=== PATIENT | female | born 1950 | race Caucasian/White ===

== ENCOUNTER 2018-05-30 09:13 | Inpatient (IN) | payer MEDICAID, MEDICARE ==
[2018-05-30] MEDS ORDERED: KETOROLAC TROMETHAMINE 30 MG/ML VIAL ONE (09:23)
[2018-05-30] MEDS ORDERED: KETOROLAC TROMETHAMINE 30 MG/ML VIAL IM ONE (09:24)
[2018-05-30] MEDS ORDERED: KETOROLAC TROMETHAMINE 30 MG/ML VIAL IV ONE (09:27)
--- NOTE | 2018-05-30 09:28 | ERNOTE ---
Lower Extremity HPI - Narrative Date of Service: 05/30/18 - General Lower Extremities Pain: hip: right Time Seen by Provider: 05/30/18 09:24 Source: patient - Immun/Allergies/Home Medications Immunizations: IMMUNIZATION HX Immunizations Up to Date Yes History of Influenza Vaccine Yes Hx Pneumococcal Vaccination Yes Allergies/Adverse Reactions: Allergies Allergy/AdvReac Type Severity Reaction Status Date / Time No Known Allergies Allergy Unverified 05/30/18 09:17 Home Medications: HOME MEDICATIONS Aspirin 81 mg PO DAILY 05/30/18 [Last Taken Unknown] - History of Present Illness Narrative: Patient is 67-year-old female who presents to the emergency room complaining of right hip pain noted this morning. Apparently patient slipped and fell landing on the right side of his hip area. She was unable to bear weight. Prior history of falls. Denies any leg swelling, paresthesia, numbness of the extremity. Occurred: this morning Location of Incident: home Method of Injury: Reports: fell Reason for Fall: Reports: slipped, tripped Associated Symptoms: Reports: unable to bear weight. Denies: snapping, popping sensation, dizzy/light headedness, headache, weakness, sensory loss, chest pain , vomiting/diarrhea, bowel/bladder problems Other Injuries: Reports: none Subsequent Symptoms: Denies: sensory loss, numbness, motor loss, bowel/bladder problem Review of Systems - Review of Systems Constitutional: Present: no symptoms reported EYE: Present: no symptoms reported ENT: Present: no symptoms reported Respiratory: Present: no symptoms reported Cardiology: Present: no symptoms reported Gastrointestinal/Abdominal: Present: no symptoms reported Genitourinary: Present: no symptoms reported Skin: Present: no symptoms reported Neurological: Present: no symptoms reported Endocrine: Present: no symptoms reported Hematologic/Lymphatic: Present: no symptoms reported Psych: Present: no symptoms reported Medical History (Last Updated 05/30/18 @ 09:17 by Martha Yun RN) No pertinent past medical history Surgical History: Surgical History (Last Updated 05/30/18 @ 09:16 by Martha Yun RN) H/O section History of appendectomy Family History: Family History (Last Updated 05/30/18 @ 09:17 by Martha Yun RN) Mother Diabetes Social History: Preferred Language Malawian Smoking Status Current every day smoker Alcohol Use none Drug Use none Physical Exam - Physical Exam General Appearance: Present: wd/wn, alert, no apparent distress Head Exam: Present: normal inspection, no evidence of injury Eye Exam: Normal inspection: bilateral, PERRL: bilateral, EOMI: bilateral Neck: Present: normal inspection, nontender, supple, full range of motion Respiratory: Present: no respiratory distress, normal breath sounds, no accessory muscle use Cardiovascular/Chest: Present: regular rate, rhythm, no murmur, normal peripheral pulses Extremity Exam: Present: normal inspection, decreased range of motion - she appears to have a decreased right hip range of motion on flexion and extension. Both maneuvers are pain producing for her. Rotational movements of the right hip at endrange is pain provoking as well. Logrolling of the right hip is significant for pain. 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 Vital Signs: Vital Signs 05/30/18 09:14 Temperature 36.8 C Pulse Rate 77 Respiratory Rate 15 Blood Pressure 166/127 H O2 Sat by Pulse Oximetry 95 - X-Ray X-Ray #2 X-Ray: hip Interpretation: Interp. by me X-ray Comments: X-ray of the pelvis and right hip repeat view consistent with right femoral neck fracture. Discussed this patient with Dr. Pierce who recommended having the patient admitted by medicine with possible surgery to be done tomorrow morning - Progress/Reassessment Chief Complaint: Hip Pain/Injury Progress Note-Subjective: 05/30/18 10:08 Patient presents to the emergency room with right hip pain after slipping and falling. Upon arrival she reports right hip pain. Examination consistent with pain at the anterior right hip region. The rest of the exam of the body of the H&P X-ray of the pelvis and hip consistent with right femoral neck fracture. Discussed this patient with Dr. Sanchez Patient will be admitted to the medicine service - Transfer of Care Expected Disposition: Admit Departure Clinical Impression: Femoral neck fracture Hip pain, acute Qualifiers: Laterality: right Qualified Code(s): M25.551 - Pain in right hip - Departure Disposition: Short Term Hospital Inpatient Condition: Stable
[2018-05-30] MEDS ORDERED: RINGER'S SOLUTION,LACTATED 1,000 ML IV ONE (12:40)
[2018-05-30] MEDS ORDERED: MORPHINE SULFATE 8 MG/ML VIAL IV PRN (12:40)
[2018-05-30] MEDS ORDERED: ONDANSETRON HCL/PF 2 MG/ML VIAL IV PRN (13:11)
[2018-05-30] MEDS ORDERED: MORPHINE SULFATE 4 MG/ML SYRG IV PRN (13:12)
--- NOTE | 2018-05-30 16:12 | CONS ---
- Reason for consultation (1) Femoral neck fracture Date of Service: 05/30/18 HPI - General Narrative: Mrs. Kong is a 67-year-old female who fell at home onto her right hip resulting in significant right hip pain and an inability to weight-bear. She was brought to the emergency department and found to have a right midcervical nondisplaced femoral neck fracture. She was admitted to the floor for preoperative optimization under the care of the family medicine practice. She denies any other areas of pain. She denies any prior hip pain or injury. She is a community ambulator and runs her own errands and lives independently. She walks without an assistive device. Source: patient Exam Limitations: no limitations - History of Present Illness Timing/Duration: 4-6 hours Severity: moderate Modifying Factors - (Worsens): Reports: movement Modifying Factors - (Improves): Reports: immobilization Associated Symptoms: denies symptoms Allergies/Adverse Reactions: Allergies No Known Allergies Allergy (Unverified 05/30/18 09:17) Home Medications: Home Medications Medication Instructions Recorded Last Taken Aspirin 81 mg PO DAILY 05/30/18 Unknown Medications - Medications Current Medications: Current Medications Morphine Sulfate (Morphine Sulfate) 4 mg IV Q6H PRN PRN Reason: Pain Stop: 06/29/18 12:41 Last Admin: 05/30/18 14:51 Dose: 2 mg Review of Systems - Review of Systems Generalized/Overall Review: Present: No Symptoms Reported Physical Examination - Exam Narrative: Right lower extremity: No lacerations, ecchymosis or abrasions over the hip. Palpable dorsalis pedis pulse. No significant limb length discrepancies. Pain with any hip range of motion. Sensation is intact light touch. She didn't flex and extend her toes and ankle. Vital Signs: Vital Signs - Last Taken Temp 36.7 C 05/30/18 14:11 Pulse 86 05/30/18 14:11 Resp 20 05/30/18 14:11 BP 162/66 H 05/30/18 14:11 Pulse Ox 98 05/30/18 14:11 O2 Oxygen Delivery Method Room Air Constitutional: Present: Alert, Oriented x3 - Results and Findings: Narrative: AP pelvis 2 views of right hip: Minimally valgus impacted essentially nondisplaced right femoral neck fracture without any signs of other pelvic fracture or advanced arthrosis. - Assessments/Findings (1) Femoral neck fracture Diagnosis(s): As his fracture is essentially nondisplaced a plan will be for closed reduction percutaneous fixation tomorrow. She'll need 6 weeks of DVT prophylaxis postoperatively. She'll be nothing by mouth after midnight. Consent will be obtained for the procedure. She will receive IV Ancef perioperatively. Problem: Acute Qualifiers: Encounter type: initial encounter Fracture type: closed Laterality: right Qualified Code(s): S72.001A - Fracture of unspecified part of neck of right femur, initial encounter for closed fracture
--- NOTE | 2018-05-30 19:06 | HP ---
Chief Complaint - Chief Complaint Date of Service: 05/30/18 Time of Service: 18:51 Chief Complaint: R hip pain History of Present Illness: 67 yo F presented to the ER after falling at her place of residence. She was unable to bear weight on her R side. In the ER, xr showed nondisplaced R femoral neck fracture. Ortho consulted and plan to repair percutaneously in the AM. Her pain is minimal now. She has no real pertinent PMH. She takes a baby asa daily but otherwise if off of all meds. She has no other concerns or complaints at this time and appears comfortable in bed. Medical History (Last Reviewed 05/30/18 @ 10:59 by Cony Gaviria RN) No pertinent past medical history Surgical History: Surgical History (Last Reviewed 05/30/18 @ 10:59 by Cony Gaviria RN) H/O section History of appendectomy Family History: Family History (Last Updated 05/30/18 @ 10:59 by Cony Gaviria RN) Mother Diabetes Hypertension Sister Hypertension Anxiety Social History: Patient Lives/Resources Home Utilized Occupation retired Preferred Language Panamanian Do you have any caodaism or Yes cultural preference? Smoking Status Current some day smoker Have you smoked in the past 12 Yes months Do you dip or chew tobacco Yes Alcohol Use none Drug Use none Review Of Systems (GEN) - Review of Systems Generalized/Overall Review: Present: No Symptoms Reported EENTM: Present: No Symptoms Reported Respiratory: Present: No Symptoms Reported Cardiac: Present: No Symptoms Reported Abdominal: Present: No Symptoms Reported Genitourinary: Present: No Symptoms Reported Musculoskeletal: Present: Joint Pain Neurological: Absent: Numbness, Parasthesia, Tingling Skin: Present: No Symptoms Reported Immunizations: IMMUNIZATION HX Immunizations Up to Date Yes History of Influenza Vaccine Yes Hx Pneumococcal Vaccination Yes Allergies/Adverse Reactions: Allergies Allergy/AdvReac Type Severity Reaction Status Date / Time No Known Allergies Allergy Unverified 05/30/18 09:17 Home Medications: HOME MEDICATIONS Aspirin 81 mg PO DAILY 05/30/18 [Last Taken Unknown] Exam - Exam Vital Signs: Vital Signs - Last Taken Temp 37.8 C 05/30/18 18:00 Pulse 84 05/30/18 18:00 Resp 20 05/30/18 18:00 BP 142/66 05/30/18 18:00 Pulse Ox 93 09/20/18 18:00 Constitutional: Present: Alert, Oriented x3, Cooperative Neck: Present: non-tender, supple Back Exam: Present: normal inspection Breasts: Present: Exam deferred Respiratory: Present: chest non-tender, lungs clear, normal breath sounds Cardiovascular/Chest: Present: normal peripheral pulses, regular rate, rhythm, no edema Abdomen: Present: Normal bowel sounds, soft /Rectal: Present: Exam deferred Extremity: Present: normal capillary refill, leg pain - pain with all ROM of R hip. Absent: pedal edema Appearance: Present: appropriate appearance Eye contact: Present: cooperative Thoughts: Present: normal thought pattern, normal mood /affect Assessment/Plan - Assessment/Plan (1) Femoral neck fracture Assessment: Ortho to repair tomorrow. Will check a hemoglobin tonight to make sure patient is hemo-dynamically stable prior to surgery. Will make patient NPO at Midnight, start IV fluids following. No DVT prophylaxis until after surgery. Problem: Acute Qualifiers: Encounter type: initial encounter Fracture type: closed Laterality: right Qualified Code(s): S72.001A - Fracture of unspecified part of neck of right femur, initial encounter for closed fracture (2) Hip pain, acute Assessment: See above. Morphine ordered PRN. Problem: Acute Qualifiers: Laterality: right Qualified Code(s): M25.551 - Pain in right hip
[2018-05-31] MEDS ORDERED: RINGER'S SOLUTION,LACTATED 1,000 ML IV ONE (00:01)
[2018-05-31] MEDS: MORPHINE SULFATE 2 MG/ML DISP.SYRIN IV PRN ×2 (00:35→06:45)
[2018-05-31] MEDS ORDERED: ceFAZolin SODIUM 1 GM VIAL IV PRN (06:00)
--- NOTE | 2018-05-31 08:51 | ANES ---
Anesthesia Pre Procedure Eval Vitals/Labs: Last Vital Signs Temp 37 C 05/31/18 07:06 Pulse 82 05/31/18 07:06 Resp 18 05/31/18 07:06 BP 149/63 05/31/18 07:06 Pulse Ox 98 05/31/18 07:06 HOME MEDICATIONS Aspirin 81 mg PO DAILY 05/30/18 [Last Taken Unknown] Allergies/Adverse Reactions: Allergies Allergy/AdvReac Type Severity Reaction Status Date / Time No Known Allergies Allergy Unverified 05/30/18 09:17 - Planned Procedure Planned Procedure: ORIF hip Medication List Reviewed:: Yes Allergies Verified: Yes Medical History (Last Reviewed 05/30/18 @ 10:59 by Cony Gaviria RN) No pertinent past medical history Surgical History (Last Reviewed 05/30/18 @ 10:59 by Cony Gaviria RN) H/O section History of appendectomy Family History (Last Updated 05/30/18 @ 10:59 by Cony Gaviria RN) Mother Diabetes Hypertension Sister Hypertension Anxiety - Family Anesthesia History Family History:: no untoward family reactions to anesthesia, no familial bleeding tendencies, no family history of clotting disorders, no family history of premature - Airway/Neck/Teeth Within Normal Limits:: Yes Teeth Condition: Missing Teeth Neck Exam: limited range of motion Mallampatti Score: 2 Thyromental (T-M) distance: > 6 cm Mandibulo Hyoid distance: > 3 cm - Respiratory Respiratory: lungs clear Smoking Status: Current every day smoker Discussed smoking cessation including day of surgery: Yes Sleep Apnea currently treated: No Sleep Apnea by current assessment: No Discussed Risks/Treatment of GERBER: No - Cardiovascular Tolerates Activity: Fair Heart Sounds: S1 & S2, Regular - Anesthesia Assessment and Plan ASA Class: PS, II Anesthesia Type Plan: General LMA - Patient chooses general anesthetic over SAB. Planned difficult intubation/equipment available: No
--- NOTE | 2018-05-31 09:36 | PN ---
Subjective - Date and Time Seen Date: 05/31/18 Time: 06:32 Objective - Review of Systems Generalized/Overall Review: Reports: No Symptoms Reported EENTM: Reports: No Symptoms Reported Respiratory: Reports: No Symptoms Reported Cardiac: Reports: No Symptoms Reported Abdominal: Reports: No Symptoms Reported Genitourinary Symptoms: Reports: No Symptoms Reported Musculoskeletal Complaints: Reports: Joint Pain - minimal Neurological: Reports: No Symptoms Reported Skin: Reports: No Symptoms Reported - Vitals Vitals: Last Vital Signs Temp 37 C 05/31/18 07:06 Pulse 82 05/31/18 07:06 Resp 18 05/31/18 07:06 BP 149/63 05/31/18 07:06 Pulse Ox 98 05/31/18 07:06 - Exam Constitutional: Present: Alert, Oriented x3, Cooperative ENT Exam: Present: hearing grossly normal Neck: Present: non-tender, supple. Absent: lymphadenopathy (R), lymphadenopathy (L) Respiratory: Present: chest non-tender, lungs clear, normal breath sounds, no respiratory distress Cardiovascular/Chest: Present: normal peripheral pulses, regular rate, rhythm, no chest tenderness, no edema Abdomen: Present: Normal bowel sounds, soft, nontender Extremity: Present: leg pain - only with motion, no leg length discepancy Skin Exam: Present: normal color Appearance: Present: appropriate appearance, appropriate insight Eye contact: Present: cooperative, good eye contact Thoughts: Present: normal thought pattern, normal mood /affect Cauti Physician Documentation - Urinary Catheter Management Urethral (Plummer) Urethral Indwelling: Yes Date of Insertion: 05/30/18 Time of Insertion: 11:36 Assessment/Plan - Problems/Diagnosis (1) Femoral neck fracture Problem: Acute Qualifiers: Encounter type: initial encounter Fracture type: closed Laterality: right Qualified Code(s): S72.001A - Fracture of unspecified part of neck of right femur, initial encounter for closed fracture Narrative: Surgery scheduled for this AM. She did well overnight and has no concerns currently. Hemoglobin stable (2) Hip pain, acute Problem: Acute Qualifiers: Laterality: right Qualified Code(s): M25.551 - Pain in right hip Narrative: Well controlled, no changes to current tx plan.
[2018-05-31] MEDS: RINGER'S SOLUTION,LACTATED 1,000 ML IV PRN ×3 (09:45→23:11)
--- NOTE | 2018-05-31 10:26 | POSTOP NO ---
Date of Surgery: 05/31/18 Patient Tolerated the Procedure: Well Post Operative Diagnosis/Procedures: Emt Driver: None Post-operative Diagnosis: Nondisplaced right femoral neck fracture Finding: Above Procedure: Percutaneous fixation right femoral neck fracture with intraoperative interpretation of x-rays Estimated Blood Loss: Minimal Specimens: None
[2018-05-31] MEDS ORDERED: diphenhydrAMINE HCL 50 MG/ML VIAL IV PRN (10:27)
[2018-05-31] MEDS ORDERED: ACETAMINOPHEN 500 MG TABLET PO PRN (10:27)
[2018-05-31] MEDS ORDERED: MAG HYDROX/ALUMINUM HYD/SIMETH 30 ML UDC PO PRN (10:27)
[2018-05-31] MEDS ORDERED: MAGNESIUM HYDROXIDE 30 ML UDC PO PRN (10:27)
[2018-05-31] MEDS ORDERED: ZOLPIDEM TARTRATE 5 MG TABLET PO PRN (10:27)
[2018-05-31] MEDS ORDERED: HYDROmorphone HCL 2 MG/ML VIAL IV PRN (10:49)
[2018-05-31] MEDS ORDERED: PROCHLORPERAZINE EDISYLATE 5 MG/ML VIAL IV PRN (10:49)
[2018-05-31] MEDS ORDERED: NALOXONE HCL 0.4 MG/ML VIAL IV PRN (10:49)
--- NOTE | 2018-05-31 10:53 | OR ---
Operative Report - Dictated Report Narrative: Date: 05/31/2018 Surgeon: Rubio Degroot M.D. Office Clerk Assistant: None Preoperative diagnosis: Closed right nondisplaced femoral neck fracture Postoperative diagnosis:Closed right nondisplaced femoral neck fracture Operations and procedures: 1. Percutaneous fixation right nondisplaced femoral neck fracture 2. Intraoperative interpretation of radiographs Anesthesia: Spinal Specimens: None Estimated blood loss: Minimal Retained implants: [employer] 7.3 millimeter 32 millimeter threads cannulated screws 85 mm, 90 mm, 90 millimeter lengths Complications: None Indications for procedure: Mrs. Kong is a 67-year-old female who injured the right hip after ground- level fall at home. She was admitted to the hospital after being evaluated in the emergency department. Once the medical provider felt that they were stable for surgical treatment, the risks and benefits alternatives were discussed. The risks of , blood clots, bleeding, infection, nerve/tendon/blood vessel injury, malunion, nonunion, failure of implants, painful implants, arthrosis, and need for additional procedures were discussed. The extremity was marked and consent was obtained on the floor. Procedure: After marking the operative extremity on the floor, the patient was taken to the operating room. A timeout was performed. IV antibiotics consisting of Ancef were administered. A spinal anesthetic was induced by anesthesia, and the patient was then placed onto a fracture table with a well-padded perineal post. The nonoperative leg was placed in a well-padded traction boot in slight extension without any traction with an SCD on the leg. The operative leg was placed in a well-padded traction boot. No traction or manipulation was performed. Preliminary images were attained utilizing C-arm in both the AP and lateral views. This confirmed that we had obtained adequate visualization of the fracture as well as reduction. Next the hip was then prepped and draped in a standard sterile fashion. Next three guidewires were placed percutaneously in an inverted triangle fashion through a small lateral incision. The inferior screws placed centered on the lateral view and along the inferior neck cortex on the AP view. The 2 superior screws were placed along the anterior and posterior cortex on the lateral view and along the inferior portion of the superior cortex on the AP in order to obtain as long of screws as possible. This was done with a starting point above the level of the lesser trochanter. C-arm was utilized in order to confirm the placement and to ensure that the tips of the guidewires were not penetrating the joint. The screws were then measured, the outer cortex was drilled, and the 3 screws were placed securing them to the bone on the lateral aspect providing fixation across the fracture. C-arm was again utilized to ensure that the screws were not into the joint and that they stabilized the fracture. The wounds were then thoroughly irrigated. Final images were obtained. The hip was placed through range of motion and showed no crepitance. The subcutaneous tissue with 3-0 Vicryl, and the skin was closed with gustavo. Sterile dressings of Xeroform, 4 x 4, and Tegaderm were applied. All sponge, sharp, and instrument counts were correct prior to closing the wounds. The patient was then awoken and transferred to the postanesthesia care unit in stable condition.
[2018-05-31] MEDS: ceFAZolin SODIUM 1 GM in DEXTROSE 5 % IN WATER 100 ML IV SCH ×4 (11:40→18:36)
--- NOTE | 2018-05-31 13:09 | ANES ---
Post Anesthesia Assessment - Vital Signs Vitals: Last Vital Signs Temp 37.1 C 05/31/18 11:42 Pulse 89 05/31/18 11:42 Resp 18 05/31/18 11:42 BP 120/56 05/31/18 11:42 Pulse Ox 93 05/31/18 11:42 Airway Patency: Normal - Mental Status Level Of Consciousness: Awake - Pain Level Pain Score: 7 - N/V Assessment Nausea/Vomiting Presence: None Dehydration:: No
--- NOTE | 2018-05-31 13:09 | ANES ---
Post Anesthesia Discharge - Transfer of Care Transfer of Care handoff given to nurse: Yes - Discharge from PACU Discharge from PACU when meets criteria: Yes - Discharge to ASU Discharge to ASU-no complications/pt stable: Yes
[2018-05-31 15:09] LABS: Prothrombin Time (Patient) 10.4 Seconds (9.0-11.0)
[2018-05-31 15:53] LABS: INR 1.04 INR (0.90-1.10)
[2018-05-31] MEDS: WARFARIN SODIUM 5 MG TABLET PO SCH (17:07)
[2018-05-31] MEDS: SENNOSIDES/DOCUSATE SODIUM 1 TAB TABLET PO SCH (20:32)
[2018-05-31] MEDS: HYDROcodone/ACETAMINOPHEN 1 EACH TABLET PO PRN (20:41)
[2018-06-01] MEDS: ceFAZolin SODIUM 1 GM in DEXTROSE 5 % IN WATER 100 ML IV SCH ×2 (00:06)
[2018-06-01] MEDS: HYDROcodone/ACETAMINOPHEN 1 EACH TABLET PO PRN ×4 (05:06→20:20)
[2018-06-01 05:44] LABS: Hematocrit 38.3 % (37.0-47.0); Hemoglobin 12.8 gm/dL (12.5-16.0); Mean Cell Volume 91.4 fl (78-100); Mean Corpuscular Hemoglobin 30.5 pg (27-31); Mean Corpuscular Hgb Conc 33.4 g/dl (32-36); Mean Platelet Volume 10.1 fl (8-12.5); Platelet Count 160 K/mm3 (150-450); Red Blood Count 4.19 M/mm3 (4.2-5.4); White Blood Count 9.8 K/mm3 (4.0-10.5)
[2018-06-01 06:09] LABS: Anion Gap 10.2 mmol/L (6.8-13.8); BUN/Creatinine Ratio 11.5 (9.0-21.6); Calcium * 8.5 mg/dL (7.9-10.9); Carbon Dioxide 28.3 mmol/L (24-32.6); Estimated Creat Clear 69.9; Potassium 3.5 mmol/L (3.4-4.6)
[2018-06-01 06:30] LABS: Prothrombin Time (Patient) 11.2 Seconds (9.0-11.0)
[2018-06-01 06:52] LABS: INR 1.12 INR (0.90-1.10)
[2018-06-01] MEDS: ENOXAPARIN SODIUM 40 MG/0.4 ML SYRG SC SCH (08:57)
--- NOTE | 2018-06-01 10:32 | PN ---
Subjective - Date and Time Seen Date: 06/01/18 Time: 07:52 Subjective Narrative: Patient states her pain is well controlled. She denies any acute events overnight. Very pleasant this am Objective Objective Narrative: Her vitals are stable, she is tolerating PO well. - Review of Systems Generalized/Overall Review: Reports: No Symptoms Reported EENTM: Reports: No Symptoms Reported Respiratory: Reports: No Symptoms Reported Cardiac: Reports: No Symptoms Reported Abdominal: Reports: No Symptoms Reported Genitourinary Symptoms: Reports: No Symptoms Reported Musculoskeletal Complaints: Reports: Joint Pain - minimal Neurological: Reports: No Symptoms Reported Skin: Reports: No Symptoms Reported - Vitals Vitals: Last Vital Signs Temp 36.1 C 06/01/18 07:12 Pulse 72 06/01/18 07:12 Resp 16 06/01/18 07:12 BP 103/43 06/01/18 07:12 Pulse Ox 95 06/01/18 07:12 - Abnormal Lab Findings Abnormal Lab Findings: Abnormal Lab Results 06/01/18 06/01/18 Range/Units 05:10 05:10 RBC 4.19 L (4.2-5.4) M/mm3 PT 11.2 H (9.0-11.0) Seconds INR (Anticoag Therapy) 1.12 H (0.90-1.10) INR - Exam Constitutional: Present: Alert, Oriented x3, Cooperative Neck: Present: non-tender, supple, normal inspection Breasts: Present: Exam deferred Respiratory: Present: chest non-tender, lungs clear, normal breath sounds Cardiovascular/Chest: Present: normal peripheral pulses, regular rate, rhythm Abdomen: Present: Normal bowel sounds, soft, nontender, nondistended /Rectal: Present: Exam deferred Extremity: Absent: normal range of motion - limited ROM of right hip following surgical repair Skin Exam: Present: normal color, warm/dry Appearance: Present: appropriate appearance, appropriate insight Eye contact: Present: cooperative Thoughts: Present: normal thought pattern, normal mood /affect Cauti Physician Documentation - Urinary Catheter Management Urethral (Plummer) Urethral Indwelling: Yes Reason for Continuing Indwelling Catheter: Surgical Procedure Date of Insertion: 05/30/18 Time of Insertion: 11:36 Date of Removal: 06/01/18 Time of Removal: 06:55 Assessment/Plan - Problems/Diagnosis (1) Femoral neck fracture Problem: Acute Qualifiers: Encounter type: initial encounter Fracture type: closed Laterality: right Qualified Code(s): S72.001A - Fracture of unspecified part of neck of right femur, initial encounter for closed fracture Narrative: Post op day 1: No concerns at this time. Pain well controlled. Patient on coumadin, lovenox to bridge. PT/OT ordered. Will stop any pain meds aside from the norco ordered by othro, nurses to notify if pain changes. (2) Hip pain, acute Problem: Acute Qualifiers: Laterality: right Qualified Code(s): M25.551 - Pain in right hip Narrative: see above
--- NOTE | 2018-06-01 12:40 | PN ---
Subjective - Date and Time Seen Date: 06/01/18 Time: 09:45 Subjective Narrative: Patient reports no acute events. She has tolerated PO diet, she is up in chair. She notes she has been up with PT. She states her pain is well controlled. Objective - Vitals Vitals: Last Vital Signs Temp 36.2 C 06/01/18 10:49 Pulse 75 06/01/18 10:49 Resp 16 06/01/18 10:49 BP 116/44 06/01/18 10:49 Pulse Ox 97 06/01/18 10:49 - Abnormal Lab Findings Abnormal Lab Findings: Abnormal Lab Results 06/01/18 06/01/18 Range/Units 05:10 05:10 RBC 4.19 L (4.2-5.4) M/mm3 PT 11.2 H (9.0-11.0) Seconds INR (Anticoag Therapy) 1.12 H (0.90-1.10) INR - Exam Constitutional: Present: Alert, Cooperative, No distress Respiratory: Present: no respiratory distress Extremity: Present: other - RLE--> SILT, post tib pulse 2+, bandages have minimal blood tinged serosangous fluid, 5/5 PF/DF, ttp diffusely over right hip Thoughts: Present: normal thought pattern Cauti Physician Documentation - Urinary Catheter Management Urethral (Plummer) Urethral Indwelling: Yes Date of Insertion: 05/30/18 Time of Insertion: 11:36 Date of Removal: 06/01/18 Time of Removal: 06:55 Assessment/Plan Plan Narrative: - 67 y/o female post-op day #1 s/p closed reduction with percutaneous fixation of right femoral neck fracture - WBAT with assistance PRN - PT/OT progress as tolerated - PO diet as tolerated - PO pain medication PRN - DVT prophy: SCDs in bed, arturo hose, lovenox bridge to coumadin per primary care - Surgical dressing maintain in place - Chronic medical conditions per medicine - Problems/Diagnosis (1) Femoral neck fracture Problem: Acute Qualifiers: Encounter type: initial encounter Fracture type: closed Laterality: right Qualified Code(s): S72.001A - Fracture of unspecified part of neck of right femur, initial encounter for closed fracture
[2018-06-01] MEDS: WARFARIN SODIUM 5 MG TABLET PO SCH (17:10)
[2018-06-01] MEDS: SENNOSIDES/DOCUSATE SODIUM 1 TAB TABLET PO SCH (20:17)
[2018-06-02] MEDS: HYDROcodone/ACETAMINOPHEN 1 EACH TABLET PO PRN ×3 (05:21→20:35)
[2018-06-02 06:03] LABS: Prothrombin Time (Patient) 11.7 Seconds (9.0-11.0)
[2018-06-02 06:06] LABS: INR 1.17 INR (0.90-1.10)
[2018-06-02] MEDS: ENOXAPARIN SODIUM 40 MG/0.4 ML SYRG SC SCH (08:58)
--- NOTE | 2018-06-02 09:44 | PN ---
Subjective - Date and Time Seen Date: 06/02/18 Time: 07:59 Subjective Narrative: Very pleasant, very comfortable. No acute events over night. States pain is well controlled. VSS, tolerating PO well, sleeping well. No BM since prior to surgery. Objective - Review of Systems Generalized/Overall Review: Reports: No Symptoms Reported EENTM: Reports: No Symptoms Reported Respiratory: Reports: No Symptoms Reported Cardiac: Reports: No Symptoms Reported Abdominal: Reports: No Symptoms Reported Genitourinary Symptoms: Reports: No Symptoms Reported Musculoskeletal Complaints: Reports: Joint Pain Neurological: Reports: No Symptoms Reported Skin: Reports: No Symptoms Reported - Vitals Vitals: Last Vital Signs Temp 36.5 C 06/02/18 07:20 Pulse 77 06/02/18 07:20 Resp 16 06/02/18 07:20 BP 134/42 06/02/18 07:20 Pulse Ox 93 06/02/18 07:20 - Abnormal Lab Findings Abnormal Lab Findings: Abnormal Lab Results 06/02/18 Range/Units 05:30 PT 11.7 H (9.0-11.0) Seconds INR (Anticoag Therapy) 1.17 H (0.90-1.10) INR - Exam Constitutional: Present: Alert, Oriented x3 Neck: Present: non-tender, supple, normal inspection Breasts: Present: Exam deferred Respiratory: Present: chest non-tender, lungs clear, normal breath sounds, no respiratory distress Cardiovascular/Chest: Present: normal peripheral pulses, no edema Abdomen: Present: Normal bowel sounds, soft, nontender /Rectal: Present: Exam deferred Extremity: Present: normal inspection. Absent: normal range of motion - ROM not tested in R hip today Skin Exam: Present: normal color, warm/dry Appearance: Present: appropriate appearance Eye contact: Present: cooperative, good eye contact Thoughts: Present: normal thought pattern, normal mood /affect Cauti Physician Documentation - Urinary Catheter Management Urethral (Plummer) Urethral Indwelling: No Date of Insertion: 05/30/18 Time of Insertion: 11:36 Date of Removal: 06/01/18 Time of Removal: 06:55 Assessment/Plan - Problems/Diagnosis (1) Femoral neck fracture Problem: Acute Qualifiers: Encounter type: initial encounter Fracture type: closed Laterality: right Qualified Code(s): S72.001A - Fracture of unspecified part of neck of right femur, initial encounter for closed fracture Narrative: Post op #2 Pain well controlled on norco. She is is ambulating with PT well. No signs of infection in RLE. She is doing well (2) Hip pain, acute Problem: Acute Qualifiers: Laterality: right Qualified Code(s): M25.551 - Pain in right hip
[2018-06-02] MEDS: WARFARIN SODIUM 7.5 MG TABLET PO SCH (16:48)
[2018-06-02] MEDS: SENNOSIDES/DOCUSATE SODIUM 1 TAB TABLET PO SCH (20:31)
[2018-06-03] MEDS: HYDROcodone/ACETAMINOPHEN 1 EACH TABLET PO PRN ×2 (05:34→10:18)
[2018-06-03 06:17] LABS: Prothrombin Time (Patient) 13.4 Seconds (9.0-11.0)
[2018-06-03 06:18] LABS: INR 1.34 INR (0.90-1.10)
--- NOTE | 2018-06-03 09:27 | DS ---
(1) Femoral neck fracture Problem: Acute Qualifiers: Encounter type: initial encounter Fracture type: closed Laterality: right Qualified Code(s): S72.001A - Fracture of unspecified part of neck of right femur, initial encounter for closed fracture (2) Hip pain, acute Problem: Acute Qualifiers: Laterality: right Qualified Code(s): M25.551 - Pain in right hip Description of Stay: Patient admitted to the hospital for surgical repair of a R femoral neck fx that happened on 05/30 after she fell in her place of residence. See surgical notes for procedure information. She has done well since the repair without any acute events or signs of infection. She is currently on Coumadin (being bridged with lovenox), she had an INR of 1.34 at the time of discharge. Will order lovenox for tomorrow in the out patient setting. Anticipate her INR to be above 2 on Sunday, she is to get it checked with her new PCP (this has been discussed with them already and agree to manage her coumadin) at that visit. Her pain has been well controlled on oral pain medication she was receiving which she will be sent home with. Her vital signs have been stable and she has had no complaints or concerns. Procedures Performed: see notes below - see full op note for details of procedure Results and Findings: Lab Pending Results 05/30/18 19:00: Hgb 14.4 05/31/18 11:49: PT 10.4, INR (Anticoag Therapy) 1.04 06/01/18 05:10: WBC 9.8, RBC 4.19 L, Hgb 12.8, Hct 38.3, MCV 91.4, MCH 30.5, MCHC 33.4, RDW 13.0, Plt Count 160, MPV 10.1 06/01/18 05:10: PT 11.2 H, INR (Anticoag Therapy) 1.12 H 06/01/18 05:10: Sodium 141, Plasma Sodium 141, Potassium 3.5, Chloride 106, Carbon Dioxide 28.3, Anion Gap 10.2, BUN 9, Creatinine 0.78, Est GFR (Non-Af Amer) 79, BUN/Creatinine Ratio 11.5, Random Glucose 100, Calcium 8.5 06/02/18 05:30: PT 11.7 H, INR (Anticoag Therapy) 1.17 H 06/03/18 05:45: PT 13.4 H, INR (Anticoag Therapy) 1.34 H Discharge Location: Home Disposition: Home self-care Condition: Good Discharge Activity: Activity as tolerated Discharge Diet: General/regular food Additional Patient Instructions (free text): Outpatient PT at [facility]. Please fax orders and face sheet upon discharge to [phone]. They will contact you with your appointment date/ time. Appointment with Dr Diallo on Thursday 06/07 at 09:30. INR on Tuesday 06/05. Go to Dr Diallo's office for this. They will draw your labs and call you with instructions regarding your dosing. Continue Lovenox tomorrow. Depending on your INR results, you may have to continue it for a longer period of time. Complete Home Medications List: Complete Home Medication List: Aspirin 81 mg PO DAILY 05/30/18 HYDROcodone/ACETAMINOPHEN [Mutual 5-325] 2 each PO Q4H PRN #60 tablet 06/03/18 Amb Orders for Discharge: Prothrombin Time Time Frame: 06/05/18, Location: [facility]'s office PT Evaluation and Treatment* Time Frame: 2 Days, Location: [facility]
[2018-06-03] MEDS: ENOXAPARIN SODIUM 40 MG/0.4 ML SYRG SC SCH (09:36)
[2018-06-03] MEDS: WARFARIN SODIUM 7.5 MG TABLET PO SCH (14:00)
[2018-06-03 14:07] VITALS: BP 138/57
== END 2018-06-03 14:30 | disposition home or self-care (01) | DRG 482 ==
LOC: ER 09:13 → MS 10:19
PROVIDERS: ADMIT Family Medicine; ATTEND Family Medicine
CPT/HCPCS: 36415; 73502; 76000; 80048; 85018; 85027; 85610; 93005; 96374; 97110; 97116; 97161; 97166; 97530; 99285